=== PATIENT | female | born 1960 | race Caucasian/White ===

== ENCOUNTER 2021-08-17 15:20 | Inpatient (IN) | payer OTHER ==
[~2021-08-17] VITALS: Ht 160 cm; Wt 126.1 kg
[2021-08-17 15:21] VITALS: BP 127/43
--- NOTE | 2021-08-17 15:52 | NUR ---
UPDATED DAUGHTER ON PLAN OF CARE.
[2021-08-17 16:01] LABS: ABSOLUTE NEUTROPHILS 2.9 thou/uL (1.4-8.2); BASOPHILS 0.3 % (0.0-2.0); HEMATOCRIT 39.1 % (37.0-47.0); LYMPHOCYTES 24.3 % (24.0-44.0); MCH 28.8 pg (26.0-34.0); MCHC 33.3 g/dL (28.0-37.0); MCV 86.5 fL (80.0-100.0); MONOCYTES 4.5 % (1.0-8.0); PLATELET COUNT 156 thou/uL (150-400); POLYS 70.9 % (36.0-66.0); RBC 4.52 mil/uL (4.20-5.00); RDW 14.7 % (10.5-14.5); WBC 4.1 thou/uL (4.0-11.0)
[2021-08-17 16:05] LABS: BE(vivo) -0.4 mmol/L (-2 to +3); HCO3 23.2 mmol/L (22.0-26.0); PCO2 34.8 mmHg (35.0-45.0); PO2 75.9 mmHg (80.0-100.0); pH 7.442 (7.360-7.450); sO2 95.8 % (92.0-98.0)
[2021-08-17 16:08] LABS: CALCIUM 8.1 mg/dL (8.5-10.1); CREATININE 0.8 mg/dL (0.6-1.0); POTASSIUM 4.1 mmol/L (3.5-5.1)
[2021-08-17 16:18] LABS: APTT 32.6 Seconds (24.5-32.8); D-DIMER 0.61 ug/mLFEU (0.19-0.50); INR 0.96; PROTIME 10.5 Seconds (10.5-12.1); TOTAL BILIRUBIN 0.3 mg/dL (0.2-1.0); TOTAL PROTEIN 7.5 g/dL (6.4-8.2)
[2021-08-17 21:50] VITALS: BP 110/57
[2021-08-17 22:00] VITALS: BP 122/73
--- NOTE | 2021-08-17 23:28 | NUR ---
ADMITTED, TO FLOOR. DENIES PAIN. HOWEVER, SHE DOES HAVE CHRONIC BACK PAIN THAT SHE ONLY TAKES A SUPPLEMENT TO ALLEVIATE PAIN. SHE DOES USE D3 AT HOME. DENIES PAIN AT THIS. SITTING UP EATING A SANDWICH AND GETTING HER IV ANTIBIOTICS
[2021-08-18 03:22] LABS: HEMATOCRIT 37.4 % (37.0-47.0); HEMOGLOBIN 12.1 gm/dL (12.0-15.0); MCH 28.4 pg (26.0-34.0); MCHC 32.3 g/dL (28.0-37.0); MCV 87.8 fL (80.0-100.0); RBC 4.26 mil/uL (4.20-5.00); RDW 14.6 % (10.5-14.5); WBC 2.9 thou/uL (4.0-11.0)
[2021-08-18 04:05] VITALS: BP 119/71
[2021-08-18 05:39] LABS: ALBUMIN 2.6 g/dL (3.4-5.0); ANION GAP 12 mmol/L (7-16); BUN 12 mg/dL (7-18); CALCIUM 8.3 mg/dL (8.5-10.1); CHLORIDE 104 mmol/L (98-107); CO2 21 mmol/L (21-32); CREATININE 0.7 mg/dL (0.6-1.0); DIRECT BILIRUBIN < 0.1 mg/dL (<0.1-0.2); GLUCOSE 163 mg/dL (74-106); PHOSPHORUS 3.3 mg/dL (2.5-4.9); POTASSIUM 4.3 mmol/L (3.5-5.1); SGOT 67 U/L (15-37); SGPT 48 U/L (30-65); SODIUM 137 mmol/L (136-145); TOTAL BILIRUBIN 0.2 mg/dL (0.2-1.0)
[2021-08-18 07:41] VITALS: BP 127/70
--- NOTE | 2021-08-18 09:16 | NUR ---
Admit with COVID+ pneumonia. Pt with class III obesity, BMI 53.2. Initial reports of decreased appetite, however pt did eat sandwich at midnight. On regular diet, labs reviewed. Vitamin pack ordered. Low nutrition risk at this time
[2021-08-18 11:24] VITALS: BP 111/60
[2021-08-18 15:27] VITALS: BP 124/74
--- NOTE | 2021-08-18 16:30 | EKG ---
[place] [address] [facility] [place] [address] ELECTROCARDIOGRAM REPORT Name: FIORDALIZA OCHOA Room #: 353-P ADM IN M.R.#: [id number] Admission: 08/17/21 Attend Phys: Esther Yip MD Discharge: Date of : 64 Report #: [id number] [facility] ED Test Date: 2021-08-17 Test Time: 16:31:14 Pat Name: FIORDALIZA OCHOA Department: Room: [facility] Gender: F Rug Washer: [id number] : 1960 Requested By: Heather Hernandez Order Number: [id number] MD: Ashish Goodwin Measurements Intervals [place] Rate: 87 P: -3 CA: 145 QRS: -26 QRSD: 103 T: 35 QT: 373 QTc: 449 Interpretive Statements Sinus rhythm Borderline left axis deviation Poor R-wave progression No previous ECG available for comparison Electronically Signed On 08-18-2021 16:30:41 MEDICAL SUPERVISOR by Ashish Goodwin [email or web address] <ELECTRONICALLY SIGNED> By: Ashish Goodwin MD, [facility] 08/18/211629 30 1631 Ashish Goodwin MD, FACC /EPI
[2021-08-18 17:04] LABS: URINE BILIRUBIN NEGATIVE (Negative); URINE BLOOD NEGATIVE (Negative); URINE CLARITY CLEAR; URINE COLOR YELLOW; URINE GLUCOSE-RANDOM* NEGATIVE (Negative); URINE KETONES NEGATIVE (Negative); URINE LEUKOCYTES-REFLEX NEGATIVE (Negative); URINE NITRITE-REFLEX NEGATIVE (Negative); URINE PROTEIN (DIPSTICK) 1+ (Negative); URINE SPECIFIC GRAVITY >= 1.030 (1.005-1.035); URINE UROBILINOGEN 0.2 E.U./dl (0.2-1.0)
--- NOTE | 2021-08-18 17:59 | NUR ---
ASSUMED PATIENT CARE AT 0700. A/O X4. INCREASED 02 NEED IN AM. ON OPTIFLOW 45L/80% NOW. HERRERA INSERTED DUO TO RETENTION. UP WITH STANDBY. WILL KEEP MONITOR,
[2021-08-18 19:15] VITALS: BP 127/76
[2021-08-19 03:38] VITALS: BP 123/72
[2021-08-19 03:53] LABS: ALBUMIN 2.5 g/dL (3.4-5.0); ANION GAP 8 mmol/L (7-16); BUN 18 mg/dL (7-18); CALCIUM 8.3 mg/dL (8.5-10.1); CHLORIDE 108 mmol/L (98-107); CO2 26 mmol/L (21-32); CREATININE 0.7 mg/dL (0.6-1.0); DIRECT BILIRUBIN < 0.1 mg/dL (<0.1-0.2); GLUCOSE 142 mg/dL (74-106); PHOSPHORUS 3.1 mg/dL (2.5-4.9); POTASSIUM 4.4 mmol/L (3.5-5.1); SGOT 58 U/L (15-37); SGPT 63 U/L (30-65); SODIUM 142 mmol/L (136-145); TOTAL BILIRUBIN 0.2 mg/dL (0.2-1.0); TOTAL PROTEIN 6.3 g/dL (6.4-8.2)
[2021-08-19 08:08] VITALS: BP 130/67
[2021-08-19 11:57] VITALS: BP 114/68
--- NOTE | 2021-08-19 12:25 | HC ---
[facility] [place] [address] CONSULTATION Name: FIORDALIZA OCHOA Room #: 353-P ADM IN M.R.#: [id number] Admission: 08/17/21 Attend Phys: Devendra Gerber MD Discharge: Date of : 64 Report #: [id number] THIS REPORT FOR: cc: NO FAMILY PHYSICIAN or PCP NO FAMILY PHYSICIAN or PCP Salazar Dominique MD ~ DATE OF SERVICE: 08/18/2021 INFECTIOUS DISEASE CONSULTATION ATTENDING PHYSICIAN: Dr. Yip REASON FOR EVALUATION: COVID-19 infection, complicated by pneumonitis and respiratory failure. HISTORY OF PRESENT ILLNESS: Chart reviewed. The patient examined. This is a 60-year-old woman with history of eczema, who apparently has been ill for a number of days. She noted onset of fevers, myalgias, headaches, subsequently developed dyspnea with cough, did test positive for COVID-19. Due to progressive weakness, difficulty breathing, she did present to the Emergency Room, found to be hypoxic, placed on supplemental oxygen and was confirmed to have positive coronavirus testing. Initial ABG showed a pH 7.442, pCO2 of 34.8, pO2 of 75.9 on 6 liters. Lactic acid was 1.2, procalcitonin 0.24. Chest x-ray did show bilateral perihilar and basilar opacities. Influenza antigen testing was negative. CRP elevated at 195.3. CTA of the chest showed no evidence of pulmonary emboli, multilobar ground glass pneumonitis. Blood cultures collected at time of admission are sterile thus far. She has been placed on supplemental oxygen, initially nasal cannula, now at 45 liters per minute, FiO2 of 85%. She has been placed on combination therapy in addition to remdesivir, ceftriaxone, azithromycin and also dexamethasone. She is generally lucid at this point. ALLERGIES: PENICILLIN. CURRENT MEDICATIONS: Include dexamethasone, enoxaparin, zinc, cholecalciferol, ascorbic acid, famotidine, albuterol, p.r.n. analgesics, antiemetics, remdesivir, ceftriaxone and azithromycin. PAST MEDICAL HISTORY: History of eczema. SOCIAL HISTORY: Nonsmoker, no ethanol, no illicit drug use. FAMILY HISTORY: Noncontributory. REVIEW OF SYSTEMS: Noted fevers, some chills, anorexia with poor p.o. intake. Denies significant GI related complaints. [address] [address] CONSULTATION Name: FIORDALIZA OCHOA Room #: 353-P [facility] IN M.R.#: [id number] Admission: 08/17/21 Attend Phys: Devendra Gerber MD Discharge: Date of : 64 Report #: [id number] PHYSICAL EXAMINATION: GENERAL: She is alert, in moderate distress. VITAL SIGNS: Temperature 97.7, T-max 100.0, pulse 76, respirations 18, blood pressure 111/60. SKIN: Warm, dry, no rashes. HEENT: Optiflow in place. NECK: Supple. Extraocular muscles intact. LUNGS: Bilateral scattered coarse breath sounds. HEART: Regular. I do not appreciate any murmur. ABDOMEN: Obese, somewhat firm, distended, nontender. EXTREMITIES: No cyanosis. GENITOURINARY AND RECTAL: Deferred. LABORATORY DATA: Most recent electrolytes, sodium 137, potassium 4.3, chloride 104, bicarbonate is 21, anion gap of 12, BUN and creatinine 12 and 0.7, glucose of 163, albumin of 2.6, total protein of 7.0. CBC: White count of 2.9, H and H 12.1 and 37.4, platelets of 131. ASSESSMENT AND PLAN: COVID-19 infection, complicated by pneumonitis and respiratory failure, does have hyperglycemia, may be due to exogenous steroid use and also leukopenia and thrombocytopenia, I suspect due to bone marrow suppression secondary to the immune system response to coronavirus. We will continue current approach including the antiviral remdesivir, corticosteroids and empiric antibacterials. We will add Actemra as well. She remains quite tenuous. Continue to monitor expectantly. <ELECTRONICALLY SIGNED> By: Salazar Dominique MD 08/19/21 1225 1301 1247 Salazar Dominique MD /nt
--- NOTE | 2021-08-19 14:13 | NUR ---
INITIAL ASSESSMENT: Received consult. JAD reviewed chart and spoke with nursing and attending physician. Pt was admitted from home due to COVID pneumonia. Pt placed in Enhanced Isolation. Pt has not received a COVID vaccination. Pt is afebrile and requiring optiflow. Pt is on IV steroids and Remdesivir. PT/OT has been ordered. JAD spoke with pt via phone. Introduced role of SW. Pt is alert/orientated x 4. Pt reports she lives at home alone. Prior to admission, pt was independent with ADLs. No use of DME. There are 2 steps to enter her home. No steps inside. 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 SW offered to provide pt with documentation to verify hospitalization if needed for her employer. No hx of services or post-acute placement. Pt states does not currently have a PCP or health insurance. JDA informed pt that [employer] will be in touch regarding Medicaid application/financial assistance. Pt verbalized understanding. Plan is for pt to discharge home when medically stable. JAD is following to assist as needed with discharge planning.
[2021-08-19 16:30] VITALS: BP 126/80
--- NOTE | 2021-08-19 18:30 | NUR ---
ON OPTIFLOLW 60L/905. DESAT WITH ACTIVITY. WILL KEEP MONITOR
[2021-08-19 19:59] VITALS: BP 124/73
[2021-08-19 20:08] LABS: BASOPHILS 0.7 % (0.0-2.0); EOSINOPHILS 0.1 % (0.0-3.0); HEMATOCRIT 39.4 % (37.0-47.0); HEMOGLOBIN 12.6 gm/dL (12.0-15.0); LYMPHOCYTES 24.9 % (24.0-44.0); MCH 28.7 pg (26.0-34.0); MCHC 31.9 g/dL (28.0-37.0); MCV 89.9 fL (80.0-100.0); MONOCYTES 7.1 % (1.0-8.0); POLYS 67.2 % (36.0-66.0); RBC 4.38 mil/uL (4.20-5.00); RDW 15.2 % (10.5-14.5); WBC 4.5 thou/uL (4.0-11.0)
[2021-08-19 20:32] LABS: PLATELET COUNT 208 thou/uL (150-400)
[2021-08-20 03:00] LABS: HEMATOCRIT 37.1 % (37.0-47.0); HEMOGLOBIN 12.2 gm/dL (12.0-15.0); MCH 28.9 pg (26.0-34.0); MCV 87.7 fL (80.0-100.0); RBC 4.23 mil/uL (4.20-5.00); RDW 14.2 % (10.5-14.5); WBC 4.4 thou/uL (4.0-11.0)
[2021-08-20 03:05] LABS: ALBUMIN 2.4 g/dL (3.4-5.0); ANION GAP 12 mmol/L (7-16); BUN 17 mg/dL (7-18); CALCIUM 8.5 mg/dL (8.5-10.1); CHLORIDE 106 mmol/L (98-107); CO2 24 mmol/L (21-32); CREATININE 0.7 mg/dL (0.6-1.0); DIRECT BILIRUBIN < 0.1 mg/dL (<0.1-0.2); GLUCOSE 136 mg/dL (74-106); PHOSPHORUS 3.2 mg/dL (2.5-4.9); POTASSIUM 4.1 mmol/L (3.5-5.1); SGOT 31 U/L (15-37); SGPT 51 U/L (30-65); SODIUM 142 mmol/L (136-145); TOTAL BILIRUBIN 0.2 mg/dL (0.2-1.0); TOTAL PROTEIN 6.6 g/dL (6.4-8.2)
--- NOTE | 2021-08-20 03:44 | NUR ---
PT IS A&OX4, ABLE TO COMMUNICATE ALL WANTS AND NEEDS TO STAFF. PT BEGAN SHIFT ON OPTIFLOW 60L/90% FIO2, HAS BEEN ABLE TO TITRATE DOWN TO 45L/70% FIO2, MAINTAINING SATS >94%. HERRERA CATHETER IN PLACE TO DD, DRAINING CLEAR TAMARA URINE. UP TO BSC WITH ASSIST X1, HAD MODERATE BM. SINUS RHYTHM ON CARDIAC MONITORING. WILL CONTINUE TO OBSERVE FOR CHANGES
[2021-08-20 04:05] VITALS: BP 152/84
[2021-08-20 07:59] VITALS: BP 135/76
[2021-08-20 11:37] VITALS: BP 123/60
--- NOTE | 2021-08-20 13:03 | NUR ---
SW reviewed chart and spoke with nursing and attending physician. Pt remains in Enhanced Isolation due to COVID. Pt is afebrile and requiring optiflow. Pt is on IV steroids and Remdesivir. No weekend discharge planned. [employer] is following for possible Medicaid application. SW is following to assist as needed with discharge planning.
[2021-08-20 16:19] VITALS: BP 134/78
--- NOTE | 2021-08-20 18:11 | NUR ---
ASSUMED PATIENT CARE AT 0700. A/O X4. DESAT WITH ACTIVITY. LOOSE STOOL. NOT TOWARDS POC GOALS.
[2021-08-20 19:34] VITALS: BP 122/64
[2021-08-21 04:52] VITALS: BP 133/82
[2021-08-21 05:56] LABS: HEMATOCRIT 37.3 % (37.0-47.0); HEMOGLOBIN 12.3 gm/dL (12.0-15.0); MCH 28.9 pg (26.0-34.0); MCHC 32.9 g/dL (28.0-37.0); MCV 87.6 fL (80.0-100.0); RBC 4.25 mil/uL (4.20-5.00); RDW 14.5 % (10.5-14.5); WBC 4.8 thou/uL (4.0-11.0)
[2021-08-21 06:05] LABS: ALBUMIN 2.6 g/dL (3.4-5.0); ANION GAP 13 mmol/L (7-16); BUN 18 mg/dL (7-18); CALCIUM 8.5 mg/dL (8.5-10.1); CHLORIDE 107 mmol/L (98-107); CO2 24 mmol/L (21-32); CREATININE 0.6 mg/dL (0.6-1.0); DIRECT BILIRUBIN < 0.1 mg/dL (<0.1-0.2); GLUCOSE 111 mg/dL (74-106); PHOSPHORUS 3.8 mg/dL (2.5-4.9); SGOT 29 U/L (15-37); SGPT 43 U/L (30-65); SODIUM 144 mmol/L (136-145); TOTAL BILIRUBIN 0.3 mg/dL (0.2-1.0); TOTAL PROTEIN 6.5 g/dL (6.4-8.2)
--- NOTE | 2021-08-21 06:28 | NUR ---
PT SLOWLY PROGRESSING TOWARD GOALS. CONTINUES ON OPTIFLOW, CURRENTLY REQUIRING 50L/70% FIO2, MAINTAINING O2 SATS >93%. VSS OTHERWISE. HAS HAD 4 LOOSE STOOLS/DIARRHEA THIS SHIFT. HERRERA CATHETER IN PLACE DRAINING TAMARA URINE. UP TO BSC FOR BM WITH SBA X1. WILL CONTINUE TO OBSERVE FOR CHANGES
[2021-08-21 07:35] VITALS: BP 142/79
[2021-08-21 16:46] VITALS: BP 123/63
--- NOTE | 2021-08-21 18:27 | NUR ---
PT HAD X3 LOOSE STOOLS DURING DAY SHIFT. WITH PREVIOUS NIGHT THAT EQUALS 10. ATTEMPTING TO GET STOOL SAMPLE FOR CDIFF RULE OUT. PT HAS HIGH ANXIETY AND DEPRESSIVE BEHAVIOR. STATING, "I DO NOT THINK I WILL SURVIVE THIS." ALSO PT HAS COMPLAINTS OF SORE BOTTOM DUE TO HER PSORIASIS. VSS, AND CALL LIGHT WITH REACH.
[2021-08-21 20:28] VITALS: BP 137/57
--- NOTE | 2021-08-21 22:06 | NUR ---
PT ALERT AND ORIENED X4. VSS AFEBRILE. UNLABORED. SATS 82-83% ON OPTIFLO 50LF AND OIE454%. INCREASED TO 95% FIO2. SATS 90-91%. NOTIFIED RT. SHE WILL BE UP TO SEE PT SHORTLY TO GIVE BREATHING TREATMENT. ENCOURAGED PT TO PRONE AFTER REMDESIVIR INFUSES. PT HAS NO C/O PIAN EXCEPT RECTAL AREA IS TENDER. ZINC OINTMENT APPLIED FOR PT. BED DOWN. CALL LIGHT IS IN REACH. WILL CONTINUE TO MONITOR PT FOR CHANGES.
[2021-08-22 04:09] VITALS: BP 127/58
--- NOTE | 2021-08-22 06:30 | NUR ---
PT RESTING WITHOUT C/O. DENIED PAIN OR SOA THIS AM. OPTIFLOW STILL ON FIO2 98% AND 50LF. RT NOTIFIED AND STATED SHE WOULD COME UP TO ADJUST PT. PT SB-SR ON THE MONITOR. VSS. STOOL FOR C-DIFF SENT TO LAB.
[2021-08-22 07:34] VITALS: BP 133/67
[2021-08-22 15:42] VITALS: BP 119/76
--- NOTE | 2021-08-22 16:54 | NUR ---
ASSUMED PATIENT CARE AT 0700. A/O X4. ON OPTIFLOW. 60L/80%. UP WITH STANDBY ASSISTED. NOT TOWARDS POC GOALS.
[2021-08-22 19:18] VITALS: BP 113/65
--- NOTE | 2021-08-22 21:09 | NUR ---
PT PROGRESSING SLOWLY TOWARDS D/C GOALS. VSS AFEBRILE. SATS WNL ON CURRENT OPTIFLOW SETTINGS. NO C/O PAIN. NO C/O SOA. PRESENTLY WATCHING TV. IV ABX INFUSING. BED DOWN CALL LIGHT IN REACH, BED ALARM IS ON.
[2021-08-23 03:52] VITALS: BP 142/31
[2021-08-23 04:53] LABS: ALBUMIN 2.6 g/dL (3.4-5.0); ANION GAP 8 mmol/L (7-16); BUN 15 mg/dL (7-18); CALCIUM 8.5 mg/dL (8.5-10.1); CHLORIDE 106 mmol/L (98-107); CO2 26 mmol/L (21-32); CREATININE 0.7 mg/dL (0.6-1.0); DIRECT BILIRUBIN < 0.1 mg/dL (<0.1-0.2); GLUCOSE 100 mg/dL (74-106); PHOSPHORUS 4.1 mg/dL (2.5-4.9); POTASSIUM 3.9 mmol/L (3.5-5.1); SGOT 36 U/L (15-37); SGPT 52 U/L (30-65); SODIUM 140 mmol/L (136-145); TOTAL BILIRUBIN 0.3 mg/dL (0.2-1.0); TOTAL PROTEIN 6.1 g/dL (6.4-8.2)
[2021-08-23 06:09] LABS: HEMATOCRIT 39.1 % (37.0-47.0); HEMOGLOBIN 12.6 gm/dL (12.0-15.0); MCH 28.3 pg (26.0-34.0); MCHC 32.1 g/dL (28.0-37.0); RBC 4.44 mil/uL (4.20-5.00); RDW 14.2 % (10.5-14.5); WBC 7.6 thou/uL (4.0-11.0)
--- NOTE | 2021-08-23 06:43 | NUR ---
PT RESTING QUIETLY. VSS AFEBRILE. SAT 100% ON CURRENT OPTIFLOW SETTINGS. NO C/O PAIN OR SOA . SR ON MONITOR.
[2021-08-23 07:39] VITALS: BP 120/62
[2021-08-23 08:41] VITALS: BP 120/62
--- NOTE | 2021-08-23 16:03 | NUR ---
SW reviewed chart and spoke with nursing and attending physician. Pt remains in Enhanced Isolation due to COVID. Pt is afebrile and on optiflow. Pt is on IV steroids and Remdesivir. Therapy ordered. [employer] is following to assist with Medicaid application/financial assistance. Case discussed with [facility] industrial rehabilitation consultant for possible admission to in acute rehab prior to discharge. JAD is following to assist as needed with discharge planning.
[2021-08-23 16:10] VITALS: BP 123/63
--- NOTE | 2021-08-23 18:20 | NUR ---
PT A/O X4. PT SAT IN CHAIR MOST OF DAY. PT ASKED THIS RN WHEN SHE WILL BE ABLE TO GO HOME. THIS RN EDUCATED PT ON CONDITION AND DID TEACHING ON EXERCISE AND INCENTIVE SPIROMETRY USAGE. PT HAS FLAT AFFECT. DENIES PAIN. FALL PRECAUTIONS IN PLACE. WILL CONTINUE TO MONITOR.
[2021-08-23 19:21] VITALS: BP 144/74
[2021-08-24 02:35] VITALS: BP 110/63
--- NOTE | 2021-08-24 04:40 | NUR ---
PT IS SLOWLY PROGRESSING TOWARD GOALS. SHE IS A&OX4 AND ABLE TO COMMUNICATE WANTS AND NEEDS TO STAFF EFFECTIVELY. STARTED SHIFT ON OPTIFLOW 50L/80%. O2 HAS BEEN SLOWLY TITRATED DOWN THROUGHOUT THE NIGHT, PT IS CURRENTLY STABLE ON 40L/60% WHILE SLEEPING, MAINTAINING O2 SATS 93-96%. ALL OTHER VS HAVE BEEN STABLE. PT VOICES THAT SHE WANTS TO GO HOME. PROVIDED EDUCATION ON DISEASE PROCESS AND SETTING/WORKING TOWARD GOALS, PT VERBALIZED UNDERSTANDING. WILL CONTINUE TO OBSERVE FOR CHANGES.
[2021-08-24 05:08] LABS: ALBUMIN 2.5 g/dL (3.4-5.0); ANION GAP 8 mmol/L (7-16); BUN 18 mg/dL (7-18); CALCIUM 8.4 mg/dL (8.5-10.1); CHLORIDE 106 mmol/L (98-107); CO2 25 mmol/L (21-32); CREATININE 0.6 mg/dL (0.6-1.0); DIRECT BILIRUBIN < 0.1 mg/dL (<0.1-0.2); GLUCOSE 108 mg/dL (74-106); PHOSPHORUS 3.6 mg/dL (2.5-4.9); POTASSIUM 4.1 mmol/L (3.5-5.1); SGOT 36 U/L (15-37); SGPT 60 U/L (30-65); SODIUM 139 mmol/L (136-145); TOTAL BILIRUBIN 0.3 mg/dL (0.2-1.0); TOTAL PROTEIN 5.9 g/dL (6.4-8.2)
[2021-08-24 07:24] VITALS: BP 103/54
--- NOTE | 2021-08-24 08:28 | NUR ---
Followup: remains hospitalized for COVID pneumonia. Wts fluctuating ~276-282. Ate 100% of all 3 meals yesterday, appetite returning. Low nutrition risk
[2021-08-24 16:21] VITALS: BP 109/68
--- NOTE | 2021-08-24 17:44 | NUR ---
PT A/O X4. PT CURRENTLY ON 40L 60% FI02. NO COMPLAINTS OF PAIN. PT IN CHAIR FOR FEW HOURS TODAY. BEDSIDE TABLE AND CALL LIGHT WITHIN REACH. PT HAS NO NEEDS CURRENTLY. WILL CONTINUE TO MONITOR.
[2021-08-24 19:08] VITALS: BP 122/71
[2021-08-25 02:49] VITALS: BP 114/55
--- NOTE | 2021-08-25 04:01 | NUR ---
PT IS SLOWLY PROGRESSING TOWARD GOAL OF DISCHARGE. A&OX4 AND ABLE TO COMMUNICATE WANTS AND NEEDS TO STAFF. HERRERA STILL IN PLACE TO DD. PT UP AD KRYSTYNA TO BEDSIDE COMMODE. O2 HAS BEEN TITRATED DOWN SLOWLY THROUGHOUT THE SHIFT. STARTED SHIFT ON 40L/60% FIO2, HAS NOW BEEN TITRATED TO 35L/50% FIO2, TOLERATING WELL WITH O2 SATS >93%. PT VERBALIZES STRONG DESIRE TO "GET HOME," RN PROVIDED EDUCATION REGARDING DISEASE PROCESS AND REALISTIC GOAL SETTING. WILL CONTINUE TO OBSERVE FOR CHANGES.
[2021-08-25 05:45] LABS: ALBUMIN 2.7 g/dL (3.4-5.0); ANION GAP 11 mmol/L (7-16); BUN 22 mg/dL (7-18); CALCIUM 8.7 mg/dL (8.5-10.1); CHLORIDE 105 mmol/L (98-107); CO2 24 mmol/L (21-32); CREATININE 0.7 mg/dL (0.6-1.0); DIRECT BILIRUBIN < 0.1 mg/dL (<0.1-0.2); GLUCOSE 118 mg/dL (74-106); PHOSPHORUS 4.1 mg/dL (2.5-4.9); POTASSIUM 4.4 mmol/L (3.5-5.1); SGOT 36 U/L (15-37); SGPT 81 U/L (30-65); SODIUM 140 mmol/L (136-145); TOTAL BILIRUBIN 0.3 mg/dL (0.2-1.0); TOTAL PROTEIN 5.9 g/dL (6.4-8.2)
[2021-08-25 07:33] VITALS: BP 122/64
--- NOTE | 2021-08-25 14:13 | NUR ---
PATIENT IS ALERT AND ORIENTED X4 THIS SHIFT. SHE IS ON 40L OF OXYGEN VIA OPTIFLOW. PATIENT IS MED-SURGE/ TELE AND HAS RUN SINUS RHYTHM/ SINUS LEANNA THIS SHIFT. PATIENT HAS BEEN CONTINENT OF BOTH BOWEL AND BLADDER THIS SHIFT. PATIENT HAS NO ALTERATIONS IN SKIN INTEGRITY. PATIENT A RIGHT AC IV THAT IS PATENT AND SALINE LOCKED. PATIENT HAS REFUSED TO WORK WITH EITHER PT/ OT THIS SHIFT. PATIENT STATES THAT SHE 'HAS ALREADY DONE HER EXCERSIZES'. PATIENT IS STRONGLY ENCOURAGED AND WILL CONTINUE TO BE STRONGLY ENCOURAGED/ EDUCATED ON THE IMPORTANCE OF PARTICIPATING IN ACTIVITIES TO PROMOTE HER WELLNESS. PATIENT CONTINUES ON ENCHANCED PRECAUTIONS. PATIENT WILL CONTINUE TO BE MONITORED.
[2021-08-25 15:46] VITALS: BP 115/67
--- NOTE | 2021-08-25 16:08 | NUR ---
SW reviewed chart and spoke with nursing and attending physician. Pt remains in Enhanced Isolation due to COVID. Pt is afebrile and on optiflow. Pt is on IV steroids. 5[facility] evaluated pt. Pt should be able to discharge home when medically stable. [employer] has screened pt for [place] Medicaid. Pt is over assets for Medicaid. SW placed call to pt's room. No answer. Plan is for pt to discharge home when medically stable. JAD is following to assist as needed with discharge planning.
[2021-08-25 20:00] VITALS: BP 143/69
--- NOTE | 2021-08-26 00:58 | NUR ---
PT PROGRESSING TOWARDS D/C GOALS. REPIRATIONS PRESENTLY UNLABORED ON 10 LNC. NO C/OPAIN ORSOA. ASSUMED CARE OF PT AROUND 2330.
[2021-08-26 02:12] LABS: HEMATOCRIT 41.7 % (37.0-47.0); HEMOGLOBIN 13.8 gm/dL (12.0-15.0); MCH 28.9 pg (26.0-34.0); MCHC 33.1 g/dL (28.0-37.0); MCV 87.3 fL (80.0-100.0); RBC 4.77 mil/uL (4.20-5.00); RDW 14.2 % (10.5-14.5); WBC 9.9 thou/uL (4.0-11.0)
[2021-08-26 03:43] LABS: CALCIUM 8.8 mg/dL (8.5-10.1); CREATININE 0.7 mg/dL (0.6-1.0); DIRECT BILIRUBIN 0.1 mg/dL (<0.1-0.2); PHOSPHORUS 4.8 mg/dL (2.5-4.9); POTASSIUM 4.4 mmol/L (3.5-5.1); TOTAL BILIRUBIN 0.3 mg/dL (0.2-1.0); TOTAL PROTEIN 6.4 g/dL (6.4-8.2)
[2021-08-26 04:31] VITALS: BP 112/69
[2021-08-26 07:25] VITALS: BP 126/59
--- NOTE | 2021-08-26 11:53 | NUR ---
JAD reviewed chart and spoke with nursing and attending physician. Pt remains in Enhanced Isolation due to COVID. Pt is afebrile and on 10L of O2. Pt is on IV meds and Remdesivir. No weekend discharge anticipated. JAD spoke with pt via phone. Pt states she is hoping to discharge home over the holiday weekend. JAD explained that O2 needs will need to be lower, in order to be discharged. Pt verbalized understanding. JAD discussed likely need for home O2. Options provided. No preference voiced. JAD confirmed pt's home address. Pt states she might be going to stay with her sister at time of discharge. She does not know her sister's address. Will need rest/exercise oximetry ordered to determine home O2 needs. JAD faxed home O2 referral to [facility]. Notified liaison. Will need testing and script for O2 faxed to [facility] when available. Contact info for [facility] placed in discharge summary. Health Resource Guide left on pt's chart to provide to pt at time of discharge. Pt will have transportation home. JAD is available to assist should needs arise. [facility]-- FaxL: [phone]
[2021-08-26 16:08] VITALS: BP 109/48
--- NOTE | 2021-08-26 18:20 | NUR ---
Patient is alert and oriented x4 this shift. She is currently on 9L of oxygen via nasal canula. Patient is med-surge/ tele and has been sinus lisa this shift. Patient has been getting up and walking to the rest room and has been continent of bowel this shift 08/26/2021. Patient has a coleman catheter in place and it is patient. Patient is on enhanced precautions at this time. Patient has an IV in her right AC that is patent and saline locked. Patient declined to take her afteroon lasix and it caused her right knee discomfort and made her toes twitch. This RN reported this to the provider and provider ordered that she be placed on a 1500 mL fluid restriction. Patient told this nurse that she was considering signing out AMA on 08/27/2021. This RN strongly discouraged patient from attempting to sign out AMA due to her increased oxygen demand. Patient declined to take part in PT this afternoon. Patient was educated by this RN and the therapist present that she needed to take part in PT so that her progress could be monitored so that staff could better navigate a treatment plan for her. Patient declined to take part in PT and states, "i'm not doing it today. I'll do it tomorrow". Patient will continue to be monitored.
[2021-08-26 19:42] VITALS: BP 134/68
--- NOTE | 2021-08-27 03:55 | NUR ---
ASSUMED PT CARE AT 1900. PT IS ALERT & ORIENTED X 4 AND ABLE TO MAKE NEEDS KNOWN. PT MADE THIS NURSE AWARE THAT SHE WOULD REFUSE LASIX AND DOES NOT WANT A FLUID RESTRICTION. PROVIDED EDUCATION AND REASSURED PT. CURRENTLY ON 9L O2 NC. O2 SATS 95-99%. PT SR ON TELE MONITOR. VSS AFEBRILE. HERRERA TO DD. CONTINUE WITH PLAN OF CARE.
[2021-08-27 04:34] LABS: CALCIUM 9.1 mg/dL (8.5-10.1); CREATININE 0.7 mg/dL (0.6-1.0); POTASSIUM 5.1 mmol/L (3.5-5.1)
[2021-08-27 04:53] VITALS: BP 114/49
[2021-08-27 07:42] VITALS: BP 91/56
[2021-08-27 16:24] VITALS: BP 105/62
--- NOTE | 2021-08-27 18:46 | NUR ---
PATIENT IS ALERT AND ORIENTED X4 THIS SHIFT. SHE CONTINUES ON MED- SURGE TELE/ AND HAS RUN SINUS LEANNA AND SINUS RHYTHM THIS SHIFT. PATIENT WAS TITRATED DOWN FROM 7L OF OXYGEN AT THE BEGINNING OF THIS RN'S SHIFT TO ROOM AIR. PATIENTS STATS ARE MAINTAINING AT BETWEEN 91- 96% AT THIS TIME. PATIENT EDUCATED THAT IF SHE DESATS WE WILL PLACE HER BACK ON OXYGEN. PATIENT IS AGREEABLE WITH THIS INTERVENTION. PATIENTS LAST BM WAS . SHE HAS AN IV IN HER RIGHT AC THAT IS SALINE LOCKED AND PATENT. PATIENT HAS PSORIASIS/ ECZEMA WHICH ARE CHRONIC CONDITONS. PATIENT IS UP INDEPENDENTLY. PATIENT CONTINUES ON ENHANCED PRECAUTIONS. PATIENT WILL CONTINUE TO BE MONITORED.
[2021-08-27 21:11] VITALS: BP 115/57
[2021-08-28 05:57] VITALS: BP 109/44
--- NOTE | 2021-08-28 06:37 | NUR ---
ASSUMED PT CARE AT 1900. PT ALERT & ORIENTED X 4. CURRENTLY ON RA. VSS AFEBRILE. PT MAKING PROGRESS TOWARDS POC GOALS.
[2021-08-28 07:40] VITALS: BP 132/66
[2021-08-28] MEDS ORDERED: ASA81BEC PO (10:00)
[2021-08-28] MEDS ORDERED: DECADRON6 MG PO (10:00)
[2021-08-28] MEDS ORDERED: LEVOFLOXACIN500 MG PO (10:00)
[2021-08-28 11:01] VITALS: BP 132/66
--- NOTE | 2021-08-28 14:43 | NUR ---
DISCHARGE NOTE: GIVEN DISCHARGE INFORMATION, NEW APPOINTMENTS NEEDED, AND INFORMATION ABOUT NEW MEDICATIONS ALONG WITH SCRIPTS. DC IV AND HERRERA. PT URINATED 300 ML AFTER HERRERA DC. ALL BELONGINGS WITH PT. PT TO DC HOME VIA CAB RIDE. PT LEFT 3W APPROX 1445.
== END 2021-08-28 14:42 | disposition home or self-care (01) | DRG 177 ==
LOC: ER 15:20 → 3W 19:21 → EROBS 19:21 → 3W 21:16
PROVIDERS: Hospitalist; Nurse Practitioner Family; Specialist; ADMIT Hospitalist; ATTEND Hospitalist
PROC: XW033E5 Introduction of Remdesivir Anti-infective into Peripheral Vein, Percutaneous Approach, New Technology Group 5 (ICD-10-PCS; 2021-08-17)
PROC: 5A0935A Assistance with Respiratory Ventilation, Less than 24 Consecutive Hours, High Flow/Velocity Cannula (ICD-10-PCS; principal; 2021-08-18)
PROC: 5A09357 Assistance with Respiratory Ventilation, Less than 24 Consecutive Hours, Continuous Positive Airway Pressure (ICD-10-PCS; principal; 2021-08-18)
PROC: XW033H5 Introduction of Tocilizumab into Peripheral Vein, Percutaneous Approach, New Technology Group 5 (ICD-10-PCS; 2021-08-18)
PROC: 5A0945A Assistance with Respiratory Ventilation, 24-96 Consecutive Hours, High Flow/Velocity Cannula (ICD-10-PCS; 2021-08-19)
PROC: 5A0945A Assistance with Respiratory Ventilation, 24-96 Consecutive Hours, High Flow/Velocity Cannula (ICD-10-PCS; 2021-08-20)
PROC: 5A0935A Assistance with Respiratory Ventilation, Less than 24 Consecutive Hours, High Flow/Velocity Cannula (ICD-10-PCS; 2021-08-24)
PROC: 5A0935A Assistance with Respiratory Ventilation, Less than 24 Consecutive Hours, High Flow/Velocity Cannula (ICD-10-PCS; 2021-08-25)
PROC: 5A0935A Assistance with Respiratory Ventilation, Less than 24 Consecutive Hours, High Flow/Velocity Cannula (ICD-10-PCS; 2021-08-26)
DX: U07.1 COVID-19 (principal); J12.82 Pneumonia due to coronavirus disease 2019; J80 Acute respiratory distress syndrome; Z68.41 Body mass index [BMI] 40.0-44.9, adult; I10 Essential (primary) hypertension; E78.5 Hyperlipidemia, unspecified; R73.9 Hyperglycemia, unspecified; F41.9 Anxiety disorder, unspecified; D69.6 Thrombocytopenia, unspecified; E66.9 Obesity, unspecified; L30.9 Dermatitis, unspecified; Z88.0 Allergy status to penicillin; Z90.710 Acquired absence of both cervix and uterus; Z28.21 Immunization not carried out because of patient refusal; Z83.438 Family history of other disorder of lipoprotein metabolism and other lipidemia; Z82.3 Family history of stroke; Z82.49 Family history of ischemic heart disease and other diseases of the circulatory system; Z80.9 Family history of malignant neoplasm, unspecified
CPT/HCPCS: 10879